=== PATIENT | male | born 1960 | race Caucasian/White ===

== ENCOUNTER → 2020-05-08 | Outpatient (CLI) | payer BC ==
--- NOTE | 2020-05-08 22:01 | CTL ---
EXAMINATION TYPE: CT Low Dose Lung DATE OF EXAM ORDERED: 05/08/2020 HISTORY: Personal tobacco use history. Lung cancer screening CT DLP: [address] CTDI: 4.44 mGy Automated exposure control for dose reduction was used. SCREENING VISIT: Initial COMPARISON: None TECHNIQUE: Low dose computed tomography scan was performed through the chest at 1 mm thick sections a nd reconstructed images in the coronal plane at [address] DIAGNOSTIC QUALITY: Limited, but interpretable FINDINGS: LUNG NODULES: None. Couple of areas of pneumonitis are within the right middle and lower lobes. LUNGS: COPD: Severity: None Fibrosis: Severity: None Lymph nodes: None Other findings: None RIGHT PLEURAL SPACE: Effusion: None Calcification: None Thickening: None Pneumothorax: None LEFT PLEURAL SPACE: Effusion: None Calcification: None Thickening: None Pneumothorax: None HEART: Heart Size: Normal Coronary calcification: None Pericardial effusion: None OTHER FINDINGS: Upper abdomen: Normal Bony thorax: Normal Supraclavicular region: Normal Other: Ascending thoracic aorta at the level the main pulmonary artery measures 3.4 cm. The main pul monary artery at the bifurcation measures 2.9 cm. IMPRESSION: Probably benign findings, groundglass opacity right middle lobe. FOLLOW UP CT CHEST RECOMMENDATION: Yes, follow-up CT chest [address] LUNG RAD: 3
== END | disposition home or self-care (01) ==
LOC: RADCTMAIN 11:50
PROVIDERS: ATTEND Family Medicine
DX: Z12.2 Encounter for screening for malignant neoplasm of respiratory organs (principal); Z87.891 Personal history of nicotine dependence; J94.8 Other specified pleural conditions
CPT/HCPCS: 71271

== ENCOUNTER 2021-08-15 09:58 | Day surgery (SDC) | payer BC ==
[~2021-08-15 09:58] MED LIST: ALPRAZolam 0.25 MG TAB PO PRN; ALPRAZolam 0.5 MG TAB PO PRN; ASPIRIN 325 MG TAB PO ONE; NITROGLYCERIN SL TABS 0.4 MG TAB SUBLINGUAL PRN
[2021-08-15] MEDS: SODIUM CHLORIDE 0.9% 1,000 ML in EMPTY BAG 1 BAG IV SCH ×2 (10:22→19:01)
[2021-08-15 10:33] LABS: Basophils # (A) 0.1 k/uL (0-0.2); Basophils % (A) 1 %; Eosinophils # (A) 0.2 k/uL (0-0.7); Eosinophils % (A) 1 %; HCT 51.3 % (39.0-53.0); HGB 17.5 gm/dL (13.0-17.5); Lymphocytes % (A) 18 %; MCH 30.3 pg (25.0-35.0); MCHC 34.2 g/dL (31.0-37.0); MCV 88.5 fL (80.0-100.0); Monocytes # (A) 0.6 k/uL (0-1.0); Monocytes % (A) 5 %; Neutrophils # (A) 8.5 k/uL (1.3-7.7); Neutrophils % (A) 74 %; Platelet Count 305 k/uL (150-450); RBC 5.79 m/uL (4.30-5.90); RDW 12.3 % (11.5-15.5); WBC 11.5 k/uL (3.8-10.6)
[2021-08-15 10:53] LABS: African American GFR (CKD) >90 (>60 ml/min/1.73 sqM); Anion Gap 13 mmol/L; Blood Urea Nitrogen 15 mg/dL (9-20); Calcium 9.5 mg/dL (8.4-10.2); Carbon Dioxide 21 mmol/L (22-30); Chloride 101 mmol/L (98-107); Glucose 257 mg/dL (74-99); Non-African American GFR(CKD) >90 (>60 ml/min/1.73 sqM); Potassium 4.2 mmol/L (3.5-5.1); Sodium 135 mmol/L (137-145)
[2021-08-15] MEDS ORDERED: ACETAMINOPHEN TAB 325 MG TAB ONE (11:36)
[2021-08-15] MEDS ORDERED: VERAPAMIL 2.5 MG/ML 2 ML AMP ONE (12:39)
[2021-08-15] MEDS ORDERED: HEPARIN SODIUM 1,000 UN/ML (10ML VL) ONE (12:40)
[2021-08-15] MEDS ORDERED: fentaNYL (PF) 50 MCG/ML 2 ML AMP ONE (12:40)
[2021-08-15] MEDS: MIDAZOLAM 2 MG/2 ML VIAL IV ONE ×2 (12:48→13:05)
[2021-08-15] MEDS ORDERED: fentaNYL (PF) 50 MCG/ML 2 ML AMP IV ONE ×2 (12:48)
[2021-08-15] MEDS ORDERED: LIDOCAINE 1% INJ 10MG/ML (5 ML VIAL-PF) SQ ONE (12:49)
[2021-08-15] MEDS ORDERED: VERAPAMIL SYRINGE (5 MG/10 ML) INTRAARTER ONE (12:51)
[2021-08-15] MEDS: HEPARIN SODIUM 1,000 UN/ML (10ML VL) IV ONE ×3 (12:55→13:23)
[2021-08-15] MEDS ORDERED: CLOPIDOGREL 75 MG TAB PO ONE (13:03)
[2021-08-15] MEDS: NITROGLYCERIN 1000MCG/10ML SYRINGE INTRACORON ONE ×2 (13:15→13:23)
[2021-08-15] MEDS ORDERED: IOPAMIDOL-370 125ML BTL INJ ONE (13:30)
[2021-08-15] MEDS ORDERED: RX INFO: IV CONTRAST WAS GIVEN 1 EACH MISC MISCELLANE PRN ×2 (13:59→17:40)
[2021-08-15] MEDS ORDERED: SODIUM CHLORIDE 0.9% 1,000 ML IV SCH (14:00)
[2021-08-15 15:00] VITALS: RESP 14; TEMP 97.7
[2021-08-15] MEDS ORDERED: MAG HYDROX/AL HYDROX/SIMETH 30 ML CUP PO PRN (17:40)
[2021-08-15] MEDS ORDERED: NITROGLYCERIN SL TABS 0.4 MG TAB SUBLINGUAL PRN (17:40)
[2021-08-15] MEDS ORDERED: ATROPINE SULFATE 0.1 MG/ML 10ML SYRINGE IV PRN (17:40)
[2021-08-15] MEDS ORDERED: ZOLPIDEM 5 MG TAB PO PRN (17:40)
--- NOTE | 2021-08-15 17:58 | P.PRCINT ---
Percutaneous Coronary Int. - Percutaneous Coronary Intervention Percutaneous Coronary Intervention: PROCEDURES PERFORMED: Left heart catheterization, bilateral coronary angiography, PCI mid OM1 with 2.5 x 23mm Xience NAOMIE post dilated with a 3.0 balloon INDICATION: Chest pain, abnormal CTA HISTORY: Patient is a pleasant 60 year old male who has been having unstable angina symptoms occuring more frequently, improved with nitro, new over the last 2 months and occurring at rest. A CTA showed obstructive disease of the OM1 and therefore LHC with possible PCI was recommended. He did not admit to much change with the Metoprolol. CONSENT:I have discussed the risks, benefits and alternative therapies for the above-mentioned procedure and for both sedation/analgesia as well as necessary blood product administration, if indicated, as they pertain to this patient. The patient has indicated understanding and acceptance of the risks and procedures discussed. PROCEDURE: After the risks, benefits and alternatives of the above mentioned procedure explained in detail with the patient, informed consent was obtained. Patient was taken to the catheterization lab and prepped and draped in usual fashion. 1% lidocaine was used to anesthetize the right radial artery. A 6- Barbadian sheath was placed in the right radial artery using modified Seldinger technique. Left coronary angiography was performed with a 5-Barbadian JL 3.5 catheter and right coronary angiography was performed with a 5-Barbadian JR5 catheter in various views. A 5-Barbadian FR5 catheter was inserted into the left ventricle and pressure measurements were obtained. The decision was made to perform PCI of the OM1. Heparin was given for ACT > 250. A 6Fr CLS 3.5 catheter was used to engage the left main. A 0.014 BMW wire was advanced into the distal OM1. Predilation was performed with a 1.5 x 12mm then a 2.5 x 12mm balloon. There were tandem 99% and 90% OM stenoses. Both lesions were covered with a 2.5 x 23mm Xience NAOMIE. The stent was post dilated with a 3.0 balloon. The wire was pulled and final angiograms were performed. Preintervention there was OMKAR 1 flow with 99% stenosis and post intervention there was OMKAR 3 flow with 0% stenosis. The right radial sheath was removed and a TR band was placed with hemostasis achieved. The patient tolerated the procedure well. Patient was transported back to the post catheterization holding area in stable condition. Conscious Sedation: Patient was monitored under the direct supervision of vision of myself for conscious sedation using Versed and fentanyl for a total duration of 39 minutes HEMODYNAMICS: Ao: 150/74 LV: 151/2, LVEDP 9 SELECTIVE CORONARY ARTERIOGRAPHY: LEFT MAIN: The left main is a large caliber vessel which bifurcates into the LAD and circumflex. There is no significant stenosis. LEFT ANTERIOR DESCENDING CORONARY ARTERY: LAD is a large caliber vessel which wraps around to the apex. There is proximal LAD 30% stenosis and otherwise mild luminal irregularities. LEFT CIRCUMFLEX CORONARY ARTERY: Left circumflex is a moderate caliber vessel with mild luminal irregularities. OM1 is moderate caliber and has a mid tandem 99% and 90% stenoses with OMKAR 1 flow. RIGHT CORONARY ARTERY: The right coronary artery is a large caliber vessel which gives off a PDA and PLV branch and is the dominant vessel. There are mild luminal irregularities. There are right to left collaterals to the OM1. FINAL IMPRESSION: 1. CAD as described above including mild 30% proximal LAD stenosis and tandem mid OM1 99% and 90% stenoses, s/p PCI mid OM1 with 2.5 x 23mm Xience NAOMIE post dilated with a 3.0 balloon 2. Normal left sided filling pressures PLAN: 1. Aggressive risk factor modification per most recent ACC/AHA guidelines. 2. Continue dual antiplatelets with aspirin and Plavix for 12 months.
[2021-08-15 18:24] VITALS: BP 158/87; PULSE 85
[2021-08-15] MEDS ORDERED: ATORVASTATIN 80 MG TAB PO SCH (21:00)
[2021-08-16] MEDS ORDERED: CLOPIDOGREL 75 MG TAB PO SCH (09:00)
[2021-08-16] MEDS ORDERED: ASPIRIN 81 MG PO SCH (09:00)
== END 2021-08-15 19:27 | disposition home or self-care (01) ==
LOC: CATHCVL 09:58 → 6NMEDSUR 13:35 → CATHCVL 19:27
PROVIDERS: ATTEND Internal Medicine
DX: I25.10 Atherosclerotic heart disease of native coronary artery without angina pectoris (principal); Z20.822 Contact with and (suspected) exposure to COVID-19
CPT/HCPCS: 93458; 80048; 85025; 87635; C9600; C1769 ×2; C1887 ×2; C1894; C1725 ×3; C1874; J2250; J2001; J3010; J1644; Q9967

== ENCOUNTER → 2023-02-23 | Outpatient (CLI) | payer OTHER ==
--- NOTE | 2023-02-23 13:43 | XR ---
EXAM TYPE: LUMBAR SPINE X RAY SERIES COMPARISON: NONE HISTORY: Pain TECHNIQUE: 4 views are submitted. FINDINGS: Alignment is anatomic. The pedicles are intact. The transverse processes are intact. There is mild anterior wedge deformity\fracture T12 of indeterminate age but likely chronic. Degenerative disc dis ease T11-T12 and T12-L1. Retrolisthesis of L1 relative to L2. Facet arthropathy L4-5 and L5-S1. Vascu lar calcifications noted. IMPRESSION: 1. Multilevel degenerative disc disease with a wedge fracture\deformity T12 indeterminate age but lik kimberlee chronic. Correlate clinically. 2. Facet arthropathy L4-5 and L5-S1 suspected foraminal encroachment consider MRI.
== END | disposition home or self-care (01) ==
LOC: RADXRMAIN 13:04
PROVIDERS: ATTEND Family Medicine
DX: M47.817 Spondylosis without myelopathy or radiculopathy, lumbosacral region (principal); M51.36 Other intervertebral disc degeneration, lumbar region
CPT/HCPCS: 72110

== ENCOUNTER 2023-06-16 15:30 | Inpatient (IN) | payer MEDICARE, OTHER ==
--- NOTE | 2023-06-16 16:03 | ED ---
Chest Pain HPI - General Chief Complaint: Chest Pain Stated Complaint: Chest pain Time Seen by Provider: 06/16/23 15:49 Source: patient Mode of arrival: ambulatory Limitations: no limitations - History of Present Illness Initial Comments: Patient is a 62-year-old man who presents for evaluation of chest pains that been going on intermittently for 1 month now. He states that initially they were brief and mild and would occur on either side of his sternum, and he usually notices them when he was trying to sleep. He states that they were brief and did not cause him much distress. He states that they have been getting more intense over the month and yesterday he had an episode that lasted maybe up to 10 minutes. He states he had just carried in groceries after shopping and he noticed pain in the substernal area down to the epigastrium and also it seemed to radiate up towards his neck. He states it was burning and moderately severe. He went to lie down and it resolved after minutes probably less than 10. MD Complaint: chest pain Onset/Timin -: month(s) Onset: during exertion Pain Location: substernal Pain Radiation: neck Quality: other (Burning) Consistency: intermittent, now resolved Improves With: rest Worsens With: exertion Anginal Symptoms: dyspnea Treatments Prior to Arrival: none - Related Data On Oral Contraceptives: No Home Medications Medication Instructions Recorded Confirmed Acetaminophen Tab [Tylenol] 2,000 mg PO TID PRN 06/16/23 06/16/23 Previous Rx's Medication Instructions Recorded Aspirin 81 mg PO DAILY 30 Days #30 tab 06/18/23 Atorvastatin [Lipitor] 40 mg PO HS 30 Days #30 tab 06/18/23 Empagliflozin [Jardiance] 25 mg PO DAILY 30 Days #30 tablet 06/18/23 Fenofibrate [Lofibra] 160 mg PO DAILY 30 Days #30 tab 06/18/23 Losartan [Cozaar] 25 mg PO DAILY 30 Days #30 tab 06/18/23 Ticagrelor [Brilinta] 90 mg PO BID 30 Days #60 tab 06/18/23 metFORMIN HCL [Glucophage] 500 mg PO BID 30 Days #60 tab 06/18/23 Allergies Allergy/AdvReac Type Severity Reaction Status Date / Time No Known Allergies Allergy Verified 06/16/23 17:16 Review of Systems ROS Statement: Those systems with pertinent positive or pertinent negative responses have been documented in the HPI. ROS Other: All systems not noted in ROS Statement are negative. Constitutional: Denies: fever ENT: Denies: congestion Respiratory: Reports: dyspnea. Denies: cough Cardiovascular: Reports: chest pain Gastrointestinal: Denies: abdominal pain, nausea, vomiting, diarrhea, constipation Genitourinary: Denies: dysuria, hematuria Musculoskeletal: Denies: back pain Skin: Denies: rash Neurological: Denies: headache, weakness EKG Findings - EKG Results: EKG: interpreted by ARNOLDD, sinus rhythm (Rate 79 bpm), normal axis, normal QRS, normal ST/T, no acute changes Past Medical History Past Medical History: Asthma, Chest Pain / Angina, GERD/Reflux, Hyperlipidemia, Hypertension Additional Past Medical History / Comment(s): intermittent chest pain-started in Jan., pain down left arm when it happens, & also left foot pain & swelling, childhood asthma, current inguinal hernia History of Any Multi-Drug Resistant Organisms: None Reported Additional Past Surgical History / Comment(s): rectal fissure repaired Past Anesthesia/Blood Transfusion Reactions: No Reported Reaction Past Psychological History: Anxiety Smoking Status: Former smoker Past Alcohol Use History: Rare Past Drug Use History: Marijuana General Exam Limitations: no limitations General appearance: alert, in no apparent distress Head exam: Present: atraumatic, normocephalic Eye exam: Present: normal appearance. Absent: scleral icterus, conjunctival injection ENT exam: Present: normal oropharynx Neck exam: Present: normal inspection Respiratory exam: Present: normal lung sounds bilaterally. Absent: respiratory distress, wheezes, rales, rhonchi, stridor, chest wall tenderness, accessory muscle use Cardiovascular Exam: Present: regular rate, normal rhythm, normal heart sounds. Absent: systolic murmur, diastolic murmur, rubs, gallop GI/Abdominal exam: Present: soft. Absent: distended, tenderness, guarding, rebound, rigid, mass Extremities exam: Present: normal inspection, normal capillary refill. Absent: pedal edema, calf tenderness Back exam: Present: normal inspection. Absent: CVA tenderness (R), CVA tenderness (L) Neurological exam: Present: alert Skin exam: Present: warm, dry, intact, normal color. Absent: rash Course Vital Signs 06/16/23 06/16/23 06/16/23 15:36 17:31 20:00 Temperature 97.8 F Pulse Rate 87 72 79 Pulse Rate [ 77 Pulse Oximetery ] Respiratory 18 18 16 Rate Blood Pressure 170/91 165/96 172/76 O2 Sat by Pulse 95 93 L 92 L Oximetry 06/16/23 21:00 Temperature Pulse Rate 78 Pulse Rate [ Pulse Oximetery ] Respiratory 26 H Rate Blood Pressure 157/80 O2 Sat by Pulse 95 Oximetry Chest Pain MDM - MDM The patient had chest x-ray that I interpreted as negative for acute infiltrate, pneumothorax, congestive heart failure. Was pt. sent in by a medical professional or institution (, PA, ELECTRICAL DESIGNER, urgent care, hospital, or shelter...) When possible be specific @ -[No] Did you speak to anyone other than the patient for history (EMS, parent, family, police, friend...)? What history was obtained from this source @ -[No] Did you review nursing and triage notes (agree or disagree)? Why? @ -[I reviewed and agree with nursing and triage notes] Were old charts reviewed (outside hosp., previous admission, EMS record, old EKG, old radiological studies, urgent care reports/EKG's, shelter records)? Report findings @ -[No old charts were reviewed] Differential Diagnosis (chest pain, altered mental status, abdominal pain women, abdominal pain men, vaginal bleeding, weakness, fever, dyspnea, syncope, headache, dizziness, GI bleed, back pain, seizure, CVA, palpatations, mental health, musculoskeletal)? @ -[Differential Chest Pain: Stable Angina, Unstable Angina, STEMI, NSTEMI Aortic Dissection, Pneumothorax, Musculoskeletal, Esophageal Spasm GERD, Cholecystitis, Pancreatitis, Zoster, th is is not meant to be an all-inclusive list. EKG interpreted by me (3pts min.). @ -[I interpreted as above] X-rays interpreted by me (1pt min.). @ -[I interpreted as above CT interpreted by me (1pt min.). @ -[None done] U/S interpreted by me (1pt. min.). @ -[None done] What testing was considered but not performed or refused? (CT, X-rays, U/S, labs)? Why? @ -[None] What meds were considered but not given or refused? Why? @ -[None] Did you discuss the management of the patient with other professionals (professionals i.e. , PA, ELECTRICAL DESIGNER, lab, RT, psych nurse, psychotherapist social worker, building superintendent, teacher, plain clothes police officer, case management director)? Give summary @ -[Case discussed with admitting physician and treatment recommendations incorporated Was smoking cessation discussed for >3mins.? @ -[yes Was critical care preformed (if so, how long)? @ -[No] Were there social determinants of health that impacted care today? How? (Homelessness, low income, unemployed, alcoholism, drug addiction, transportation, low edu. Level, literacy, decrease access to med. care, prison, rehab)? @ -[No] Was there de-escalation of care discussed even if they declined (Discuss DNR or withdrawal of care, Hospice)? DNR status @ -[No] What co-morbidities impacted this encounter? (DM, HTN, Smoking, COPD, CAD, Cancer, CVA, ARF, Chemo, Hep., AIDS, mental health diagnosis, sleep apnea, morbid obesity)? @ -[Hypertension, hyperlipidemia, smoking, CAD Was patient admitted / discharged? Hospital course, mention meds given and route, prescriptions, significant lab abnormalities, going to OR and other pertinent info. @ -[Patient is a 62-year-old man with cardiac risk factors who is having chest pain. Will admit for serial cardiac enzymes, telemetry monitoring, cardiology consultation Undiagnosed new problem with uncertain prognosis? @ -[No] Drug Therapy requiring intensive monitoring for toxicity (Heparin, Nitro, Insulin, Cardizem)? @ -[No] Were any procedures done? @ -[No] Diagnosis/symptom? @ -[Acute chest pain Acute, or Chronic, or Acute on Chronic? @ -[Acute Uncomplicated (without systemic symptoms) or Complicated (systemic symptoms)? @ -[Uncomplicated Side effects of treatment? @ -[No] Exacerbation, Progression, or Severe Exacerbation? @ -[No] Poses a threat to life or bodily function? How? (Chest pain, [place], [place], pneumonia, PE, COPD, DKA, ARF, appy, cholecystitis, CVA, Diverticulitis, Homicidal, Suic idal, threat to staff... and all critical care pts) @ -[There is possible threat to life, chest pain requires further evaluation and patient admitted Disposition Clinical Impression: Chest pain, Hyperglycemia, unspecified Disposition: ADMITTED IP TO THIS HOSP Condition: Fair Is patient prescribed a controlled substance at d/c from ED?: No
[2023-06-16] MEDS: MORPHINE SULFATE 4 MG/ML SYRINGE IV STA (16:12)
[2023-06-16] MEDS: NITROGLYCERIN SL TABS 0.4 MG TAB SUBLINGUAL STA (16:13)
[2023-06-16] MEDS: ASPIRIN 81 MG PO STA (16:13)
[2023-06-16 16:22] LABS: Basophils # (A) 0.1 k/uL (0-0.2); Basophils % (A) 1 %; Eosinophils # (A) 0.2 k/uL (0-0.7); Eosinophils % (A) 2 %; HCT 51.5 % (39.0-53.0); HGB 17.6 gm/dL (13.0-17.5); Lymphocytes # (A) 2.4 k/uL (1.0-4.8); Lymphocytes % (A) 31 %; MCH 30.8 pg (25.0-35.0); MCHC 34.1 g/dL (31.0-37.0); MCV 90.2 fL (80.0-100.0); Mean Platelet Volume 7.1; Monocytes # (A) 0.5 k/uL (0-1.0); Monocytes % (A) 6 %; Neutrophils # (A) 4.5 k/uL (1.3-7.7); Neutrophils % (A) 58 %; Platelet Count 244 k/uL (150-450); RDW 12.6 % (11.5-15.5); WBC 7.8 k/uL (3.8-10.6)
--- NOTE | 2023-06-16 16:35 | XR ---
EXAMINATION TYPE: XR chest 2V DATE OF EXAM: 06/16/2023 4:29 PM CLINICAL INDICATION:Male, 62 years old with history of Chest Pain; [facility] COMPARISON: None TECHNIQUE: XR chest 2V Frontal and lateral views of the chest. FINDINGS: Lungs/Pleura: There is no evidence of pleural effusion, focal consolidation, or pneumothorax. Pulmonary vascularity: Unremarkable. Heart/mediastinum: Cardiomediastinal silhouette is unremarkable. Musculoskeletal: No acute osseous pathology. IMPRESSION: No acute cardiopulmonary disease/process.
[2023-06-16 16:43] LABS: INR 0.9 (<1.2); Partial Thromboplastin Time 24.5 sec (22.0-30.0); Prothrombin Time 10.4 sec (10.0-12.5)
[2023-06-16 16:50] LABS: ALT 24 U/L (4-49); AST 21 U/L (17-59); African American GFR (CKD) >90 (>60 ml/min/1.73 sqM); Albumin 4.5 g/dL (3.5-5.0); Alkaline Phosphatase 142 U/L (38-126); Amylase 57 U/L (30-110); Anion Gap 10 mmol/L; Blood Urea Nitrogen 16 mg/dL (9-20); Calcium 9.6 mg/dL (8.4-10.2); Carbon Dioxide 19 mmol/L (22-30); Chloride 105 mmol/L (98-107); Glucose 257 mg/dL (74-99); Lipase 82 U/L (23-300); Magnesium 1.8 mg/dL (1.6-2.3); Non-African American GFR(CKD) >90 (>60 ml/min/1.73 sqM); Potassium 4.1 mmol/L (3.5-5.1); Sodium 134 mmol/L (137-145); Total Bilirubin 0.7 mg/dL (0.2-1.3); Total Protein 7.4 g/dL (6.3-8.2)
[2023-06-16] MEDS ORDERED: NITROGLYCERIN SL TABS 0.4 MG TAB SUBLINGUAL PRN (18:13)
[2023-06-16] MEDS: INSULIN REGULAR 100 UNIT/ML VIAL (IV) SQ STA (18:34)
[2023-06-16 21:01] LABS: Glucose,Whole Blood 357 mg/dL (70-110)
[2023-06-16] MEDS: MORPHINE SULFATE 2 MG/ML SYRINGE IVP STA (23:28)
[2023-06-17] MEDS: ACETAMINOPHEN TAB 325 MG TAB PO STA (02:15)
[2023-06-17] MEDS: MELATONIN 5 MG TABLET PO ONE (02:16)
--- NOTE | 2023-06-17 02:21 | P.HPIM ---
History of Present Illness H&P Date: 06/16/23 Patient is a 62-year-old male with a PMH of CAD status post stenting, hypertension, hyperlipidemia, and asthma who presents to the emergency room with complaints of chest discomfort. Patient reports that he has been experiencing intermittent mild chest discomfort in the left upper chest over the past 2 to 3 months. He denies experiencing shortness of breath, nausea, vomiting, diaphoresis, or dizziness. Reports the pain is a 3 out of 10 at maximal intensity, occurs intermittently throughout the day, with no clear alleviating or exacerbating features, and occurring at varying amounts each day. Also reports the pain is often in the epigastric region and radiates up into the neck. Chest x-ray in the emergency room was unremarkable with EKG showing sinus rhythm at [address]/T wave changes noted as reviewed by me. Laboratory evaluation revealed a troponin less than 0.012, sodium 134, creatinine 0.6, glucose 257. ED documentation reviewed and case discussed with ED provider. Review of systems: Pertinent positives and negatives as discussed in HPI, a complete review of systems was performed and all other systems are negative. Physical examination: Vital signs reviewed General: non toxic, no distress, appears at stated age, overweight Derm: no unusual rashes/lesions, warm Head: atraumatic, normocephalic, symmetric Eyes: EOMI, no lid lag, anicteric sclera, pupils equal round reactive to light ENT: Nose and ears atraumatic Neck: No cervical lymphadenopathy, trachea midline, supple Mouth: no lip lesion, mucus membranes moist Cardiovascular: S1S2 reg, no murmur, positive dorsalis pedis pulse bilateral, no edema Lungs: CTA bilateral, no rhonchi, no rales, no accessory muscle use Abdominal: soft, nontender to palpation, no guarding Ext: muscle strength 5 out of 5 in all 4 extremities grossly, no gross muscle atrophy, no contractures, Neuro: CN II-XI grossly intact, no gross focal neuro deficits Psych: Alert, oriented, appropriate affect Assessment: Chest pain, rule out ACS Hyperglycemia, newly diagnosed type II DM Chronic conditions: Hypertension, hyperlipidemia, asthma Imaging: Chest x-ray in the emergency room was unremarkable with EKG showing sinus rhythm at [address]/T wave changes noted as reviewed by me. Data Review: Laboratory evaluation revealed a troponin less than 0.012, sodium 134, creatinine 0.6, glucose 257. Plan: Cardiac monitoring Cardiology consulted Trend troponin Continue with aspirin and statin Insulin sliding scale blood glucose monitoring Check A1c Check lipid panel DVT prophylaxis: Lovenox subcu The patient is admitted with an anticipated less than 2 midnight stay for evaluation of chest pain CODE STATUS: Full Code Discussed with: Patient Anticipated discharge place: Home Past Medical History Past Medical History: Asthma, Chest Pain / Angina, GERD/Reflux, Hyperlipidemia, Hypertension Additional Past Medical History / Comment(s): intermittent chest pain-started in Jan., pain down left arm when it happens, & also left foot pain & swelling, childhood asthma, current inguinal hernia History of Any Multi-Drug Resistant Organisms: None Reported Past Surgical History: Heart Catheterization With Stent Additional Past Surgical History / Comment(s): rectal fissure repaired Past Anesthesia/Blood Transfusion Reactions: No Reported Reaction Date of Last Stent Placement:: 08/15/2021 Past Psychological History: Anxiety Smoking Status: Former smoker Past Alcohol Use History: Rare Additional Past Alcohol Use History / Comment(s): quit smoking May 2021, smoked on & off since teens, 1ppd Past Drug Use History: Marijuana Additional Drug Use History / Comment(s): very occasional use Medications and Allergies Home Medications Medication Instructions Recorded Confirmed Type Acetaminophen Tab [Tylenol Tab] 2,000 mg PO TID PRN 06/16/23 06/16/23 History Allergies Allergy/AdvReac Type Severity Reaction Status Date / Time No Known Allergies Allergy Verified 06/16/23 17:16 Physical Exam Vitals: Vital Signs Temp Pulse Pulse Resp BP BP Pulse Ox 06/16/23 21:47 97.7 F 77 16 167/85 94 L 06/16/23 21:00 78 26 H 157/80 95 06/16/23 20:00 79 77 16 172/76 92 L 06/16/23 17:31 72 18 165/96 93 L 06/16/23 15:36 97.8 F 87 18 170/91 95 Intake and Output 06/16/23 06/16/23 06/17/23 14:59 22:59 06:59 Intake Total 10 Balance 10 Intake: IV 10 0.9 10 Other: Voiding Method Toilet # Voids 1 Weight 90.718 kg Results CBC & Chem 7: 06/16/23 16:10 06/16/23 16:10 Labs: Abnormal Lab Results - Last 24 Hours (Table) 06/16/23 06/16/23 06/16/23 Range/Units 16:10 16:10 20:59 Hgb 17.6 H (13.0-17.5) gm/dL Sodium 134 L (137-145) mmol/L Carbon Dioxide 19 L (22-30) mmol/L Creatinine 0.60 L (0.66-1.25) mg/dL Glucose 257 H (74-99) mg/dL POC Glucose (mg/dL) 357 H (70-110) mg/dL Alkaline Phosphatase 142 H (38-126) U/L Thrombosis Risk Factor Assmnt - Choose All That Apply Any of the Below Risk Factors Present?: No Other Risk Factors: Yes Each Risk Factor Represents 2 Points: Age 61-74 years Other congenital or acquired thrombophilia - If yes, enter type in comment: No Thrombosis Risk Factor Assessment Total Risk Factor Score: 2 Thrombosis Risk Factor Assessment Level: Low Risk
[2023-06-17] MEDS: ATORVASTATIN 80 MG TAB PO STA (02:28)
[2023-06-17 06:20] LABS: Glucose,Whole Blood 259 mg/dL (70-110)
[2023-06-17] MEDS: MORPHINE SULFATE 2 MG/ML SYRINGE IVP STA ×2 (06:42→23:19)
[2023-06-17] MEDS: INSULIN ASPART (NovoLOG) 100 UNIT/ML VIAL SQ SCH (06:43)
[2023-06-17] MEDS ORDERED: AMINOPHYLLINE 500 MG/20 ML VIAL IV PRN (08:56)
[2023-06-17] MEDS ORDERED: CAFFEINE CITRATE 60 MG/3 ML VIAL IV PRN (08:56)
[2023-06-17] MEDS ORDERED: REGADENOSON 0.4 MG/5 ML SYRINGE IV PRN (08:56)
[2023-06-17] MEDS ORDERED: ASPIRIN 325 MG TAB PO SCH (09:00)
[2023-06-17] MEDS: ASPIRIN 81 MG PO SCH (09:01)
[2023-06-17] MEDS: ENOXAPARIN 40 MG/0.4 ML SYRINGE SQ SCH (09:01)
[2023-06-17] MEDS: LOSARTAN 25 MG TAB PO SCH (09:01)
--- NOTE | 2023-06-17 10:41 | P.CRDCN ---
History of Present Illness History of present illness: HISTORY OF PRESENT ILLNESS: This is a 62-year-old male with a past medical history significant for coronary artery disease with previous PCI of the OM1, hypertension, hyperlipidemia, medi cation noncompliance, and former nicotine dependence. Patient follows in the office with Dr. Wyman but has not been seen since 2021. We have been asked to see the patient in consultation for chest pain. Patient examined at the bedside. Patient states he has been having chest pain on and off for the past month. He states the pain is usually on the left side of his chest. He denies any radiati on into his arm, back, or jaw. He states the pain is usually worse with exertion. He also reports that he has not had a lot of energy recently. He gives additional history of pain in his right foot when walking. 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 He states after his stenting in 2021 he ended up losing his job and has been without insurance. He is not taking any prescription medications at this time. Patient's blood pressures have been elevated with a systolic in the 160s. DIAGNOSTICS: - EKG reveals sinus mechanism with no signs of acute ischemia. - Chest xray negative for acute process. - Laboratory data: WBC 7.8. Hemoglobin 17.6. Platelet count 244. Sodium 134. Potassium 4.1. BUN 16. Creatinine 0.6. Hemoglobin A1c 9.9. Troponin negative x 3. - Current home cardiac medications include none - Cardiac catheterization history: July 2021 with stenting of the OM1 REVIEW OF SYSTEMS: At the time of my exam: CONSTITUTIONAL: Denies fever or chills. HEENT: Denies blurred vision, vision changes, or eye pain. Denies hemoptysis CARDIOVASCULAR: Denies chest pain. Denies orthopnea. Denies PND. Denies palpitations RESPIRATORY: Denies shortness of breath. GASTROINTESTINAL: Denies abdominal pain. Denies nausea or vomiting. HEMATOLOGIC: Denies bleeding disorders. GENITOURINARY: Denies any blood in urine. SKIN: Denies pruitis. Denies rash. PHYSICAL EXAM: VITAL SIGNS: Reviewed. GENERAL: Well-developed in no acute distress. HEENT: Head is normocephalic. Pupils are equal, round. Sclerae anicteric. Mucous membranes of the mouth are moist. Neck supple. No JVD or thyromegaly LUNGS: Respirations even and unlabored. Lungs essentially clear to auscultation bilaterally. HEART: Regular rate and rhythm. S1 and S2 heard. ABDOMEN: Soft. Nondistended. Nontender. EXTREMITIES: Normal range of motion. No clubbing or cyanosis. Peripheral pulses intact. No lower extremity edema NEUROLOGIC: Awake and alert. Oriented x 3. ASSESSMENT: Chest pain, troponin negative x 3 Coronary artery disease with previous PCI of the OM1, 07/2021 Hypertension Hyperlipidemia with previous noncompliance with statin therapy Diabetes, uncontrolled, hemoglobin A1c 9.9 History of medication noncompliance Former nicotine dependence PLAN: An acute coronary but has been ruled out Continue aspirin 81 mg daily Begin atorvastatin 40 mg at night. Lipid panel pending. Begin losartan 25 mg daily Diabetic management per internal medicine Obtain 2D echo to assess cardiac structure and function Patient to undergo Lexiscan stress test Further recommendations pending patient course Nurse practitioner note has been reviewed by physician. Signing provider agrees with the documented findings, assessment, and plan of care documented by [employer] PREVENTION MANAGER as a scribe. Past Medical History Past Medical History: Asthma, Chest Pain / Angina, GERD/Reflux, Hyperlipidemia, Hypertension Additional Past Medical History / Comment(s): intermittent chest pain-started in Nov., pain down left arm when it happens, & also left foot pain & swelling, childhood asthma, current inguinal hernia History of Any Multi-Drug Resistant Organisms: None Reported Past Surgical History: Heart Catheterization With Stent Additional Past Surgical History / Comment(s): rectal fissure repaired Past Anesthesia/Blood Transfusion Reactions: No Reported Reaction Date of Last Stent Placement:: 08/15/2021 Past Psychological History: Anxiety Smoking Status: Former smoker Past Alcohol Use History: Rare Additional Past Alcohol Use History / Comment(s): quit smoking May 2021, smoked on & off since teens, 1ppd Past Drug Use History: Marijuana Additional Drug Use History / Comment(s): very occasional use Medications and Allergies Home Medications Medication Instructions Recorded Confirmed Type Acetaminophen Tab [Tylenol Tab] 2,000 mg PO TID PRN 06/16/23 06/16/23 History Allergies Allergy/AdvReac Type Severity Reaction Status Date / Time No Known Allergies Allergy Verified 06/16/23 17:16 Physical Exam Vitals: Vital Signs Temp Pulse Pulse Resp BP BP Pulse Ox 06/17/23 07:58 97 06/17/23 07:09 97.6 F 68 18 166/91 96 06/17/23 02:00 97.5 F L 67 18 167/75 97 06/16/23 21:47 97.7 F 77 16 167/85 94 L 06/16/23 21:00 78 26 H 157/80 95 06/16/23 20:00 79 77 16 172/76 92 L 06/16/23 17:31 72 18 165/96 93 L 06/16/23 15:36 97.8 F 87 18 170/91 95 Intake and Output 06/16/23 06/17/23 06/17/23 22:59 06:59 14:59 Intake Total 10 Balance 10 Intake: IV 10 0.9 10 Other: Voiding Method Toilet Toilet # Voids 1 2 Weight 90.718 kg Results 06/16/23 16:10 06/16/23 16:10 Cardiac Enzymes 06/16/23 06/16/23 06/16/23 Range/Units 16:10 16:10 19:23 AST 21 (17-59) U/L Troponin I <0.012 <0.012 (0.000-0.034) ng/mL 06/16/23 Range/Units 23:03 AST (17-59) U/L Troponin I <0.012 (0.000-0.034) ng/mL Coagulation 06/16/23 Range/Units 16:10 PT 10.4 (10.0-12.5) sec APTT 24.5 (22.0-30.0) sec CBC 06/16/23 Range/Units 16:10 WBC 7.8 (3.8-10.6) k/uL RBC 5.70 (4.30-5.90) m/uL Hgb 17.6 H (13.0-17.5) gm/dL Hct 51.5 (39.0-53.0) % Plt Count 244 (150-450) k/uL Comprehensive Metabolic Panel 06/16/23 Range/Units 16:10 Sodium 134 L (137-145) mmol/L Potassium 4.1 (3.5-5.1) mmol/L Chloride 105 (98-107) mmol/L Carbon Dioxide 19 L (22-30) mmol/L BUN 16 (9-20) mg/dL Creatinine 0.60 L (0.66-1.25) mg/dL Glucose 257 H (74-99) mg/dL Calcium 9.6 (8.4-10.2) mg/dL AST 21 (17-59) U/L ALT 24 (4-49) U/L Alkaline Phosphatase 142 H (38-126) U/L Total Protein 7.4 (6.3-8.2) g/dL Albumin 4.5 (3.5-5.0) g/dL Current Medications Generic Name Dose Route Start Last Admin Trade Name Freq PRN Reason Stop Dose Admin Aspirin 81 mg 06/17/23 09:00 Aspirin 81 Mg PO DAILY [facility] Atorvastatin Calcium 80 mg 06/17/23 21:00 Atorvastatin 80 Mg Tab PO HS [facility] Enoxaparin Sodium 40 mg 06/17/23 09:00 Enoxaparin 40 Mg/0.4 Ml Syringe SQ DAILY [facility] Insulin Aspart 0 unit 06/17/23 07:30 06/17/23 06:43 Insulin Aspart (Novolog) 100 Unit/Ml Vial SQ 6 unit ACHS [facility] Administration Protocol Nitroglycerin 0.4 mg 06/16/23 18:13 Nitroglycerin Sl Tabs 0.4 Mg Tab SUBLINGUAL Q5M PRN Chest Pain Intake and Output 06/16/23 06/17/23 06/17/23 22:59 06:59 14:59 Intake Total 10 Balance 10 Intake: IV 10 0.9 10 Other: Voiding Method Toilet Toilet # Voids 1 2 Weight 90.718 kg 06/16/23 16:10 06/16/23 16:10
[2023-06-17 12:07] LABS: Chol/HDL Ratio 14.05 Ratio; HDL Cholesterol 25.2 mg/dL (40.00-60.00); VLDL Calculation 297.6 mg/dL (5.00-40.00)
--- NOTE | 2023-06-17 12:41 | CA ---
Lexiscan Nuclear Stress Test Report Name: Mendez Chacon Exam Date: 06/17/2023 11:08 Exam Location: [place] Stress Ht (in): 72 Wt (lb): 200 BSA: 2.13 Ordering Phys: Mallory Da Silva Referring Phys: FOUZIA/DAVID Technologist: Carlos Nick Age: 62 Gender: M : 1960 Procedure CPT: Indications: Reflex order-Stress test ICD-10 Codes: Patient History: CHEST PAIN, HTN, CURRENT SMOKER, PRIOR CARDIAC CATH WITH STENTING, Medications: Meds past 24 hrs: Pretest Chest Pain: STRESS TEST Lexiscan Protocol Exercise Duration (min:sec): 01:[address] Depressions (mm): Angina Score: Blevins Score: Resting HR (bpm): 67 Peak HR (bpm): 114 Resting BP (mmHg): 158 / 98 Peak BP (mmHg): 196 / 92 MPHR: 158 Target HR: 134 % MPHR: 72 METS: 1.0 Total Dose: Peak Dose: Atropine: Double Product: 10666 BP Response: Stress Termination: INFUSION COMPLETE Stress Symptoms: HEADACHE Stress Summary: 0.4 mg of Lexiscan was infused as per the protocol. Patient's hemodynamics and ECG were monitored during the stress test. Patient did not encounter any chest pain chest pressure or shortness of breath with Lexiscan infusion. Patient explained significant headache for which she was given pepsi ECG ANALYSIS Resting ECG: Normal sinus rhythm, normal axis, HR 80 bpm Stress ECG: Peak stress in early recovery ECG shows T wave inversions in Lead III. No ectopic beats or sustained arrhythmias noticed during the stress CONCLUSIONS Abnormal ECG response to Lexiscan infusion. Hypertensive at baseline. Normal hemodynamic response to Lexiscan infusion Please refer to the nuclear imaging portion of the stress test for the complete interpretation of the study Dr Rajinder Manzo (Electronically Signed) Final Date: 17 June 2023 12:40
[2023-06-17 12:51] LABS: LDL Cholesterol,Direct Reflex 92.4 mg/dL (0.00-129.00)
--- NOTE | 2023-06-17 12:52 | CA ---
Transthoracic Echo Report Name: Mendez Chacon Age: 62 Gender: M : 1960 Exam Date: 06/17/2023 11:57 Exam Location: [place] Echo Ht (in): 70 Wt (lb): 200 Ordering Physician: Mallory Da Silva Attending/Referring Phys: [id number], Avinash Dispatch Clerk Duncan Howell RDCS Procedure CPT: Indications: LV function, CP Cardiac Hx: Technical Quality: Contrast 1: Definity Total Dose (mL): 2 Contrast 2: Total Dose (mL): MEASUREMENTS (Male / Female) Normal Values 2D ECHO LV Diastolic Diameter PLAX 4.7 cm 4.2 - 5.9 / 3.9 - 5.3 cm LV Systolic Diameter PLAX 2.7 cm IVS Diastolic Thickness 1.3 cm 0.6 - 1.0 / 0.6 - 0.9 cm LVPW Diastolic Thickness 1.3 cm 0.6 - 1.0 / 0.6 - 0.9 cm LV Relative Wall Thickness 0.6 LVOT Diameter 1.5 cm Aortic Root Diameter 2.9 cm LA Systolic Diameter LX 4.0 cm 3.0 - 4.0 / 2.7 - 3.8 cm LA Volume 68.9 cm??? 18 - 58 / 22 - 52 cm??? LA Volume Index 32.3 cm???/m??? 16 - 28 cm???/m??? DOPPLER AV Peak Velocity 146.4 cm/s AV Peak Gradient 8.6 mmHg AV Mean Velocity 119.5 cm/s AV Mean Gradient 5.9 mmHg AV Velocity Time Integral 28.7 cm LVOT Peak Velocity 142.2 cm/s LVOT Peak Gradient 8.1 mmHg LVOT Velocity Time Integral 29.8 cm LVOT Stroke Volume 52.2 cm??? LVOT Stroke Volume Index 25.0 ml/m??? LVOT Cardiac Index 2051.8 cm???/min???m??? AV Area Cont Eq vti 1.8 cm??? AV Area Cont Eq pk 1.7 cm??? Mitral E Point Velocity 76.6 cm/s Mitral A Point Velocity 106.2 cm/s Mitral E to A Ratio 0.7 MV Deceleration Time 332.6 ms TR Peak Velocity 220.2 cm/s TR Peak Gradient 19.4 mmHg PV Peak Velocity 103.4 cm/s PV Peak Gradient 4.3 mmHg FINDINGS Left Ventricle Left ventricular ejection fraction is estimated at 50-55 %. Normal left ventricular wall motion. No obvious regional wall motion abnormalities. Right Ventricle Normal right ventricular size and function. Unable to estimate the right ventricular systolic pressure. Right Atrium Normal right atrial size. Left Atrium Mildly increased left atrial volume. Mitral Valve Trace mitral regurgitation. Aortic Valve No aortic valve stenosis or regurgitation. Tricuspid Valve Trace tricuspid regurgitation. Pulmonic Valve No pulmonic regurgitation. Pericardium No pericardial effusion. Aorta Normal size aortic root. CONCLUSIONS Left ventricular ejection fraction is estimated at 50-55 %. No obvious regional wall motion abnormalities. No significant valvular dysfunction Normal RV size and function. Previewed by: Dr Rajinder Manzo (Electronically Signed) Final Date: 17 June 2023 12:51
--- NOTE | 2023-06-17 12:57 | NM ---
EXAMINATION TYPE: NM stress lexiscan cardiolite DATE OF EXAM: 06/17/2023 COMPARISON: NONE CLINICAL INDICATION: Male, 62 years old with history of CP; TECHNIQUE: After the intravenous administration of 9.9 mCi Tc 99m Sestamibi - Cardiolite resting SPE CT images acquired 45 minutes post injection. The patient received 0.4mg Lexiscan, 25.7 mCi Tc 99m Sestamibi - Stress images obtained [address] injection FINDINGS: Review of stress and rest SPECT images demonstrates large area of stress-induced reversible ischemia involving the anterior, apical and septal portions of the myocardium with reduced wall motion activit y. The ejection fraction is 64%. Note is made the stress ejection fraction is only 53%. Report kate d to the patients nurse Anju 12:52 PM 06/17/2023. IMPRESSION: Large area of stress-induced reversible ischemia as discussed above.
[2023-06-17 13:05] LABS: Glucose,Whole Blood 280 mg/dL (70-110)
[2023-06-17] MEDS ORDERED: ALPRAZolam 0.5 MG TAB PO PRN (13:44)
[2023-06-17] MEDS ORDERED: NITROGLYCERIN SL TABS 0.4 MG TAB SUBLINGUAL PRN (13:44)
[2023-06-17] MEDS: MORPHINE SULFATE 4 MG/ML SYRINGE IVP STA (14:22)
[2023-06-17 15:30] VITALS: BMI 27.1
--- NOTE | 2023-06-17 16:08 | P.PN ---
Subjective Progress Note Date: 06/17/23 Hospital course: Patient is a very pleasant 62-year-old male with a past medical history of CAD status post stenting, hypertension, hyperlipidemia, GERD, and asthma. He presented to the emergency department on 06/16/2023 with a chief complaint of chest pain. He underwent evaluation in the emergency department. Vital signs upon arrival show elevated blood pressure of 170/91, heart rate 87, respiratory rate 18, temp 97.8 F, and SpO2 of 95% on room air. EKG was completed showing normal sinus rhythm at 79 bpm. Chest x-ray negative for acute cardiopulmonary process. Labs completed and reviewed. CBC showing elevated hemoglobin of 17.6 otherwise normal findings. Coagulation profile normal findings. BMP revealing mild hyponatremia with sodium of 134 and hypocarbia with bicarb of 19. Blood glucose elevated at 257. Magnesium normal findings at 1.8. Liver profile showing elevated alkaline phosphatase of 142. Amylase and lipase normal findings. Troponin was negative at less than 0.012. Patient was admitted under our services with consultation to cardiology. Troponins trended overnight all negative at less than 0.012 x 3 draws. Patient continued to be hyperglycemic and hemoglobin A1c resulting at 9.9%. Lipid profile revealing severe hyper triglyceridemia with triglycerides of 1488, elevated cholesterol of 354 and elevated VLDL of 297.60. Patient started on atorvastatin 40 mg daily and fenofibrate 160 mg daily. Physical exam: Vital signs reviewed and stable. General: Nontoxic, no distress and appears stated age. Derm: Skin warm and dry, normal coloration for ethnicity. Head: Atraumatic, normocephalic and symmetric. Eyes: EOMs intact, no lid lag, and anicteric sclera Mouth: no lip lesions, mucus membranes moist Cardiovascular: regular rate and rhythm with normal S1S2, no murmur, positive posterior tibial pulses bilaterally, and cap refill < 2 seconds. Lungs: Respirations even, regular, and unlabored on room air. Lungs CTA bilaterally, no rhonchi, no rales, no wheezing, and no accessory muscle usage. Abdominal: soft, nontender to palpation, no guarding, no appreciable org anomegaly Ext: ROM intact. No gross muscle atrophy, no edema, no contractures Neuro: Speech clear, face symmetrical and CN II-XII grossly intact with no noted focal neuro deficits Psych: Alert and oriented to person, place, time, and situation. Appropriate and pleasant affect. Assessment and Plan of Care: Chest pain, rule out acute coronary event Severe hypertriglyceridemia Newly diagnosed type 2 diabetes mellitus with hyperglycemia. Hemoglobin A1c 9.9% Hypertension Hyperlipidemia -Cardiology consulted, planning to take patient for cardiac cath tomorrow morning. -Lexiscan stress test revealed large area of stress-induced reversible ischemia. -Echocardiogram revealing a preserved EF of 50 to 55% with no significant structural or valvular abnormalities reported. -Lipid profile revealing severe hypertriglyceridemia with triglycerides of 1488, elevated cholesterol of 354 and elevated VLDL of 297.60. (Amylase and lipase were normal findings) Patient started on atorvastatin 40 mg daily and fenofibrate 160 mg daily. -Continue telemetry monitoring -Troponins trended overnight all negative at less than 0.012 x 3 draws -Continue heart healthy and carb consistent diet, NPO at midnight for planned cardiac catheterization. -Continue medication regimen with aspirin 81 mg daily, atorvastatin 40 mg nightly, fenofibrate 160 mg daily, and losartan 25 mg daily, -Hemoglobin A1c is 9.9%. Patient will require diabetic teaching, diabetic supplies and medications on discharge. -Had long discussion with patient and at bedside regarding lifestyle and dietary modifications needed secondary to significantly elevated hemoglobin A1c and triglyceride levels and need for cardiac risk modifications. Data and imaging reviewed: Labs reviewed. Troponins trended overnight all negative at less than 0.012 x 3 draws. Hemoglobin A1c 9.9%. Lipid profile revealing severe hypertriglyceridemia with triglycerides of 1488, elevated cholesterol of 354 and elevated VLDL of 297.60. Lexiscan stress test revealed large area of stress-induced reversible ischemia. Echocardiogram revealing a preserved EF of 50 to 55% with no significant structural or valvular abnormalities reported. CODE STATUS: Full code DVT prophylaxis: Lovenox Anticipated discharge date: Clinical course to determine Anticipated discharge place: Clinical course to determine Patient was seen independently by Nurse Pracitioner. This document was prepared using [employer] dictation software. Please allow for errors in musical engineer, while rare they do occur. Rob Sullivan NP rendered care for this patient independently, reviewed the findings and plan as documented in the note above. I did not physically speak with or examine the patient on this date. Objective - Vital Signs Vital signs: Vital Signs Temp 97.6 F 06/17/23 07:09 Pulse 68 06/17/23 07:09 Resp 18 06/17/23 07:09 BP 166/91 06/17/23 07:09 Pulse Ox 97 06/17/23 07:58 FiO2 Intake & Output 06/16/23 06/17/23 06/17/23 18:59 06:59 18:59 Intake Total 10 Balance 10 Weight 90.718 kg 90.718 kg Intake: IV 10 0.9 10 Other: Voiding Method Toilet # Voids 2 - Labs CBC & Chem 7: 06/16/23 16:10 06/16/23 16:10 Labs: Abnormal Lab Results - Last 24 Hours (Table) 06/16/23 06/16/23 06/16/23 Range/Units 16:10 16:10 19:23 Hgb 17.6 H (13.0-17.5) gm/dL Sodium 134 L (137-145) mmol/L Carbon Dioxide 19 L (22-30) mmol/L Creatinine 0.60 L (0.66-1.25) mg/dL Glucose 257 H (74-99) mg/dL POC Glucose (mg/dL) (70-110) mg/dL Hemoglobin A1c 9.9 H (<=6.0) % Alkaline Phosphatase 142 H (38-126) U/L 06/16/23 06/17/23 Range/Units 20:59 06:19 Hgb (13.0-17.5) gm/dL Sodium (137-145) mmol/L Carbon Dioxide (22-30) mmol/L Creatinine (0.66-1.25) mg/dL Glucose (74-99) mg/dL POC Glucose (mg/dL) 357 H 259 H (70-110) mg/dL Hemoglobin A1c (<=6.0) % Alkaline Phosphatase (38-126) U/L
[2023-06-17 17:31] LABS: Glucose,Whole Blood 220 mg/dL (70-110)
[2023-06-17] MEDS: FENOFIBRATE 160 MG TAB PO SCH (17:59)
[2023-06-17 20:30] LABS: Glucose,Whole Blood 180 mg/dL (70-110)
[2023-06-17] MEDS ORDERED: ATORVASTATIN 80 MG TAB PO SCH (21:00)
[2023-06-17] MEDS: ATORVASTATIN 40 MG TAB PO SCH (21:15)
[2023-06-18 05:58] LABS: Glucose,Whole Blood 264 mg/dL (70-110)
[2023-06-18] MEDS: SODIUM CHLORIDE 0.9% 1,000 ML in EMPTY BAG 1 BAG IV SCH (06:05)
[2023-06-18] MEDS: ATORVASTATIN 80 MG TAB PO ONE (06:05)
[2023-06-18] MEDS: ASPIRIN 325 MG TAB PO ONE (06:05)
[2023-06-18] MEDS ORDERED: HEPARIN SODIUM,PORCINE 10,000 UNIT in SODIUM CHLORIDE 0.9% 1,000 ML IRRIGATION PRN (07:00)
[2023-06-18] MEDS ORDERED: HEPARIN SODIUM,PORCINE (1 ML) 2,500 UNIT in SODIUM CHLORIDE 0.9% 250 ML IRRIGATION PRN (07:00)
[2023-06-18] MEDS ORDERED: VERAPAMIL 2.5 MG/ML 2 ML AMP ONE (09:33)
[2023-06-18] MEDS ORDERED: LIDOCAINE 1% INJ 10MG/ML (20 ML MDV) ONE (09:33)
[2023-06-18] MEDS ORDERED: HEPARIN SODIUM 1,000 UN/ML (10ML VL) ONE ×2 (09:41→11:02)
[2023-06-18 09:42] VITALS: RESP 16
[2023-06-18] MEDS ORDERED: fentaNYL (PF) 50 MCG/ML 2 ML AMP ONE (09:53)
[2023-06-18] MEDS: SODIUM CHLORIDE 0.9% 1,000 ML IV ONE (09:55)
[2023-06-18] MEDS: LIDOCAINE 1% INJ 10MG/ML (10 ML MDV) SQ ONE ×2 (10:04→10:07)
[2023-06-18] MEDS: MIDAZOLAM 2 MG/2 ML VIAL IVP ONE (10:04)
[2023-06-18] MEDS: fentaNYL (PF) 50 MCG/ML 2 ML AMP IVP ONE (10:05)
[2023-06-18] MEDS: HEPARIN SODIUM 1,000 UN/ML (10ML VL) IV ONE ×2 (10:08→11:02)
[2023-06-18] MEDS: VERAPAMIL SYRINGE (5 MG/10 ML) INTRAARTER ONE (10:08)
[2023-06-18] MEDS ORDERED: TICAGRELOR 90 MG TAB ONE (10:13)
[2023-06-18] MEDS: TICAGRELOR 90 MG TAB PO ONE (10:14)
[2023-06-18] MEDS: IOPAMIDOL-370 100ML BTL INJ ONE ×2 (10:42→11:05)
[2023-06-18] MEDS: NITROGLYCERIN 1000MCG/10ML SYRINGE INTRACORON ONE (10:44)
[2023-06-18] MEDS ORDERED: MAG HYDROX/AL HYDROX/SIMETH 30 ML CUP PO PRN (11:12)
[2023-06-18] MEDS ORDERED: RX INFO: IV CONTRAST WAS GIVEN 1 EACH MISC MISCELLANE PRN (11:12)
[2023-06-18] MEDS ORDERED: ZOLPIDEM 5 MG TAB PO PRN (11:12)
[2023-06-18] MEDS ORDERED: ATROPINE SULFATE 0.1 MG/ML 10ML SYRINGE IV PRN (11:12)
[2023-06-18 11:17] LABS: HCT 51.1 % (39.6-50.0); HGB 18.3 g/dL (13.0-17.0); MCH 30.8 pg (27.0-32.0); MCHC 35.8 g/dL (32.0-37.0); Mean Platelet Volume 9.3 FL (9.5-12.2); NRBC Per 100 WBC 0 X 10*3/uL (0.00-0.01); Platelet Count 223 X 10*3/uL (140-440); RBC 5.94 X 10*6/uL (4.40-5.60); RDW 12.4 % (11.5-14.5); WBC 7.89 X 10*3/uL (4.50-10.00)
[2023-06-18 11:42] LABS: BUN/Creat Ratio 18.38 Ratio (12.00-20.00); Blood Urea Nitrogen 14.7 mg/dL (9.0-27.0); Glucose 252 mg/dL (70-110)
[2023-06-18 11:43] LABS: ALT 23 U/L (10-49); AST 17 U/L (14-35); Albumin 4.5 g/dL (3.8-4.9); Albumin/Globulin Ratio 1.73 Ratio (1.60-3.17); Alkaline Phosphatase 133 U/L (41-126); Calcium 9.7 mg/dL (8.7-10.3); Carbon Dioxide 20.8 mmol/L (21.6-31.8); Chloride 101 mmol/L (96-109); Globulin 2.6 g/dL (1.6-3.3); Potassium 4.1 mmol/L (3.5-5.5); Sodium 135 mmol/L (135-145); Total Bilirubin 0.8 mg/dL (0.3-1.2); Total Protein 7.1 g/dL (6.2-8.2)
[2023-06-18 11:56] LABS: Glucose,Whole Blood 267 mg/dL (70-110)
--- NOTE | 2023-06-18 13:22 | P.PN ---
Subjective Progress Note Date: 06/18/23 Hospital course: Patient is a very pleasant 62-year-old male with a past medical history of CAD status post stenting, hypertension, hyperlipidemia, GERD, and asthma. He presented to the emergency department on 06/16/2023 with a chief complaint of chest pain. He underwent evaluation in the emergency department. Vital signs upon arrival show elevated blood pressure of 170/91, heart rate 87, respiratory rate 18, temp 97.8 F, and SpO2 of 95% on room air. EKG was completed showing normal sinus rhythm at 79 bpm. Chest x-ray negative for acute cardiopulmonary process. Labs completed and reviewed. CBC showing elevated hemoglobin of 17.6 otherwise normal findings. Coagulation profile normal findings. BMP revealing mild hyponatremia with sodium of 134 and hypocarbia with bicarb of 19. Blood glucose elevated at 257. Magnesium normal findings at 1.8. Liver profile showing elevated alkaline phosphatase of 142. Amylase and lipase normal findings. Troponin was negative at less than 0.012. Patient was admitted under our services with consultation to cardiology. Troponins trended overnight all negative at less than 0.012 x 3 draws. Patient continued to be hyperglycemic and hemoglobin A1c resulting at 9.9%. Lipid profile revealing severe hyper triglyceridemia with triglycerides of 1488, elevated cholesterol of 354 and elevated VLDL of 297.60. Patient started on atorvastatin 40 mg daily and fenofibrate 160 mg daily. Echocardiogram revealing a preserved EF of 50 to 55% with no significant structural or valvular abnormalities reported. Lexiscan stress test revealed large area of stress-induced reversible ischemia. Patient underwent left heart cath with successful stenting of LAD. Had long discussion with patient regarding risk modifications including dietary and lifestyle modifications that he will need to make. Patient will need to be discharged home on multiple new medications and will need diabetic supplies. Patient does not have insurance, case management on board and will attempt to assist with indigent funds. Physical exam: Vital signs reviewed and stable. General: Nontoxic, no distress and appears stated age. Derm: Skin warm and dry, normal coloration for ethnicity. Head: Atraumatic, normocephalic and symmetric. Eyes: EOMs intact, no lid lag, and anicteric sclera Mouth: no lip lesions, mucus membranes moist Cardiovascular: regular rate and rhythm with normal S1S2, no murmur, positive posterior tibial pulses bilaterally, and cap refill < 2 seconds. Lungs: Respirations even, regular, and unlabored on room air. Lungs CTA bilaterally, no rhonchi, no rales, no wheezing, and no accessory muscle usage. Abdominal: soft, nontender to palpation, no guarding, no appreciable organomegaly Ext: ROM intact. No gross muscle atrophy, no edema, no contractures. TR band in place on right wrist. Neuro: Speech clear, face symmetrical and CN II-XII grossly intact with no noted focal neuro deficits Psych: Alert and oriented to person, place, time, and situation. Appropriate and pleasant affect. Assessment and Plan of Care: Chest pain, rule out acute coronary event Severe hypertriglyceridemia Newly diagnosed type 2 diabetes mellitus with hyperglycemia. Hemoglobin A1c 9.9% Hypertension Hyperlipidemia -Cardiology consulted, planning to take patient for cardiac cath tomorrow morn ing. -Lexiscan stress test revealed large area of stress-induced reversible ischemia. -Echocardiogram revealing a preserved EF of 50 to 55% with no significant structural or valvular abnormalities reported. -Lipid profile revealing severe hypertriglyceridemia with triglycerides of 1488, elevated cholesterol of 354 and elevated VLDL of 297.60. (Amylase and lipase were normal findings) Patient started on atorvastatin 40 mg daily and fenofibrate 160 mg daily. -Continue telemetry monitoring -Troponins trended overnight all negative at less than 0.012 x 3 draws -Continue heart healthy and carb consistent diet, NPO at midnight for planned cardiac catheterization. -Continue medication regimen with aspirin 81 mg daily, atorvastatin 40 mg nightly, fenofibrate 160 mg daily, and losartan 25 mg daily, -Hemoglobin A1c is 9.9%. Patient will require diabetic teaching, diabetic supplies and medications on discharge. -Had long discussion with patient and at bedside regarding lifestyle and dietary modifications needed secondary to significantly elevated hemoglobin A1c and triglyceride levels and need for cardiac risk modifications. Data and imaging reviewed: Patient underwent left heart cath and report reviewed stating successful stenting of LAD. Vital signs reviewed. Blood pressure 142/89, heart rate 81, respiratory rate 16, temp 97.8 F, and SpO2 of 95% on room air. Morning labs reviewed. CBC showing polycythemia with hemoglobin of 18.3. BMP showing low bicarb of 20.8 and elevated anion gap of 13.20 with morning glucose of 252. Liver profile unremarkable with exception of elevated alkaline phosphatase of 133. CODE STATUS: Full code DVT prophylaxis: Lovenox Anticipated discharge date: Tomorrow morning Anticipated discharge place: Home Patient was seen independently by Nurse Pracitioner. This document was prepared using [employer] dictation software. Please allow for errors in bottom cager, while rare they do occur. Rob Sullivan NP rendered care for this patient independently, reviewed the findings and plan as documented in the note above. I did not physically speak with or examine the patient on this date. Objective - Vital Signs Vital signs: Vital Signs Temp 97.8 F 06/18/23 07:00 Pulse 76 06/18/23 07:00 Resp 15 06/18/23 07:00 BP 161/84 06/18/23 07:00 Pulse Ox 97 06/18/23 07:00 FiO2 Intake & Output 06/17/23 06/18/23 06/18/23 18:59 06:59 18:59 Weight 90.718 kg Other: Voiding Method Toilet # Voids 1 2 - Labs CBC & Chem 7: 06/19/23 12:16 06/19/23 12:16 Labs: Abnormal Lab Results - Last 24 Hours (Table) 06/17/23 06/17/23 06/17/23 Range/Units 06:20 06:20 13:04 POC Glucose (mg/dL) 280 H (70-110) mg/dL Hemoglobin A1c 10.0 H (<=6.0) % Triglycerides 1488.00 H (0.00-149.00) mg/dL Cholesterol 354.00 H (0.00-200.00) mg/dL VLDL Cholesterol, Calc 297.60 H (5.00-40.00) mg/dL HDL Cholesterol 25.20 L (40.00-60.00) mg/dL 06/17/23 06/17/23 06/18/23 Range/Units 17:29 20:29 05:57 POC Glucose (mg/dL) 220 H 180 H 264 H (70-110) mg/dL Hemoglobin A1c (<=6.0) % Triglycerides (0.00-149.00) mg/dL Cholesterol (0.00-200.00) mg/dL VLDL Cholesterol, Calc (5.00-40.00) mg/dL HDL Cholesterol (40.00-60.00) mg/dL
--- NOTE | 2023-06-18 16:33 | P.PRCINT ---
Percutaneous Coronary Int. - Percutaneous Coronary Intervention Percutaneous Coronary Intervention: PROCEDURES PERFORMED: Left heart catheterization, bilateral coronary angiography, ultrasound guided arterial access, iFR RCA, PCI mid LAD with a 3.0 x 18mm Xience NAOMIE, post dilated with a 3.5 NC balloon, IVUS LAD INDICATION: Abnormal stress test, unstable angina CONSENT:I have discussed the risks, benefits and alternative therapies for the above-mentioned procedure and for both sedation/analgesia as well as necessary blood product administration, if indicated, as they pertain to this patient. The patient has indicated understanding and acceptance of the risks and procedures discussed. PROCEDURE: After the risks, benefits and alternatives of the above mentioned procedure explained in detail with the patient, informed consent was obtained. Patient was taken to the catheterization lab and prepped and draped in usual fashion. Ultrasound guidance was used to assess for arterial access. 1% lidocaine was used to anesthetize the right radial artery. A 6-[place] sheath was placed in the right radial artery using modified Seldinger technique and ultrasound guidance. Left coronary angiography was performed with a 5-[place] JL 3.5 catheter and right coronary angiography was performed with a 5-[place] FR5 ca theter in various views. A 5-[place] FR5 catheter was inserted into the left ventricle and pressure measurements were obtained. The decision was made to perform iFR of the RCA. A 6-[place] AL 0.75 guide was used to engage the RCA. A 0.014 pressure wire was advanced in the proximal RCA normalize. It was then advanced 1 cm distal to the distal lesion. IFR was performed and was normal at 0.97.next, the decision was made to perform PCI of LAD. Initially a 6-[place] CLS 3.5 guide was used however was selective in of the circumflex. Therefore a 6-[place] CLS 3.0 guide was used to engage the left main and with manipulation able to partially engage into the LAD. A 0.014 BMW wire was advanced to the distal LAD. Predilation was performed with a 2.5 x 12 mm balloon. Intravascular ultrasound was performed which showed reference vessel 3.5 mm proximally however diffuse disease of the entire mid to distal LAD. The most normal segment had reference vessel of 3.0 mm. PCI was performed with a 3.0 x 18 mm Xience NAOMIE of the mid LAD. The proximal and midportion of the stent were postdilated with a 3.5 mm noncompliant balloon. Repeat intravascular ultrasound still showed some underexpansion and therefore the 3.5 mm noncompliant balloon again was used with at high atmospheres. Repeat intravascular ultrasound showed excellent stent apposition. Final angiograms were performed. Preintervention there was 95% stenosis and OMKAR-3 flow and postintervention there was less than 10% stenosis with OMKAR 3 flow. The right radial sheath was removed and a TR band was placed with hemostasis achieved. The patient tolerated the procedure well. Patient was transported back to the post catheterization holding area in stable condition. Conscious Sedation: Patient was monitored under the direct supervision of myself for conscious sedation using Versed and fentanyl for a total duration of 59 minutes HEMODYNAMICS: Ao: 154/81 LA: 152/2, LVEDP 8 SELECTIVE CORONARY ARTERIOGRAPHY: LEFT MAIN: The left main is a large caliber, short vessel which bifurcates into the LAD and circumflex. There is no significant stenosis. LEFT ANTERIOR DESCENDING CORONARY ARTERY: LAD is a large caliber vessel which wraps around to the apex. There is ostial LAD 20% stenosis, diffuse proximal to mid LAD 30% stenosis with a more focal mid LAD 95% stenosis.. LEFT CIRCUMFLEX CORONARY ARTERY: Left circumflex is a moderate caliber vessel. OM1 is small caliber with a mid 50% stenosis. The circumflex has a patent stent with 20-30% circumflex stenosis. RIGHT CORONARY ARTERY: The right coronary artery is a large caliber vessel which gives off a PDA and PLV branch and is the dominant vessel. There is significant change from prior angiograms in 202 with a proximal RCA 60-70% and a mid RCA 50% stenosis. There are mild luminal irregularities of the distal RCA. FINAL IMPRESSION: 1. Multivessel CAD including 95% mid LAD, proximal RCA 60-70% stenosis with patent circumflex stent 2. S/p PCI mid LAD with a 3.0 x 18mm Xience NAOMIE, post dilated with a 3.5 NC balloon 3. iFR normal of RCA 4. Normal left sided filling pressures PLAN: 1. Aggressive risk factor modification per most recent ACC/AHA guidelines. 2. Continue dual antiplatelets with aspirin and Brillinta for 12 months 3. Treat RCA medically with normal iFR 4. Advised tobacco cessation and more aggressive regimen with fairly rapid p rogression in the last 2 years of CAD. Gave patient information and referral to [place] quit line.
[2023-06-18] MEDS: ALPRAZolam 0.25 MG TAB PO PRN (16:34)
[2023-06-18 17:46] LABS: Glucose,Whole Blood 176 mg/dL (70-110)
[2023-06-18] MEDS: TICAGRELOR 90 MG TAB PO SCH (20:57)
[2023-06-18 20:58] LABS: Glucose,Whole Blood 196 mg/dL (70-110)
[2023-06-19 06:34] LABS: Glucose,Whole Blood 236 mg/dL (70-110)
[2023-06-19 07:51] VITALS: BP 153/83; PULSE 77; TEMP 98.1
[2023-06-19] MEDS ORDERED: ACETAMINOPHEN TAB 325 MG TAB PO PRN (09:28)
[2023-06-19] MEDS: HYDROcodone/APAP 5-325MG 1 EACH TAB PO PRN (09:49)
--- NOTE | 2023-06-19 09:56 | P.DS ---
Providers Date of admission: 06/16/23 18:16 Expected date of discharge: 06/19/23 Attending physician: Booker Arredondo MD Consults: 06/16/23 18:13 Consult Physician Routine Consulting Provider: Rajinder Manzo Consult Reason/Comments: chest pain Do you want consulting provider notified?: Yes 06/18/23 11:12 Consult Physician Routine Consulting Provider: [facility] Consult Reason/Comments: Post Interventional Patient Do you want consulting provider notified?: Already Contacted Primary care physician: Stated None Hospital Course: 62-year-old male with a PMH of CAD status post stenting, hypertension, hyperlipidemia, GERD, and asthma. He presented to the emergency department on 06/16/2023 with a chief complaint of chest pain. He underwent evaluation in the emergency department. Vital signs upon arrival showed BP 170/91, HR 87, RR 18, T 97.8 F, and SpO2 of 95% on room air. EKG was completed showing NSR at 79 bpm. CXR negative for acute cardiopulmonary process. Labs completed and reviewed. CBC showing elevated hemoglobin of 17.6 otherwise normal findings. Coagulation profile normal findings. BMP revealing mild hyponatremia with sodium of 134 and hypocarbia with bicarb of 19. Blood glucose elevated at 257. Magnesium normal findings at 1.8. Liver profile showing elevated alkaline phos of 142. Amylase and lipase normal findings. Troponin was negative at less than 0.012. Patient was admitted under our services with consultation to cardiology. Troponins trended overnight all negative at less than 0.012 x 3 draws. Patient continued to be hyperglycemic and hemoglobin A1c resulting at 9.9%. Lipid profile revealing severe hypertriglyceridemia with triglycerides of 1488, elevated cholesterol of 354 and elevated VLDL of 297.60. Patient started on atorvastatin 40 mg daily and fenofibrate 160 mg daily. Echocardiogram revealing a preserved EF of 50 to 55% with no significant structural or valvular abnormalities reported. Lexiscan stress test revealed large area of stress- induced reversible ischemia. Patient underwent left heart cath with successful stenting of LAD. Had long discussion with patient regarding risk modifications including dietary and lifestyle modifications that he will need to make. Case management able to obtain medications at bedside with indegent funds. 06/18 Patient was seen and examined. Complains of foot pain. No chest pain. BMP is pending. Plans for discharge home today if renal function is OK and Cardiology cleared. General: no distress, appears at stated age Derm: warm, dry Head: atraumatic, normocephalic, symmetric Eyes: EOMI, no lid lag, anicteric sclera Mouth: no lip lesion, mucus membranes moist Cardiovascular: S1S2 reg, no murmur Lungs: Clear to auscultation bilateral, no rhonchi, no rales , no accessory muscle use Ext: no gross muscle atrophy, no edema, no contractures Neuro: No focal neurologic deficits Psych: Alert and oriented Discharge Diagnosis: Chest pain, rule out acute coronary event Severe hypertriglyceridemia Newly diagnosed type 2 diabetes mellitus with hyperglycemia. Hemoglobin A1c 9.9% Hypertension Hyperlipidemia This complex discharge took 35 minutes to complete. Patient Condition at Discharge: Stable Plan - Discharge Summary Discharge Rx Participant: Yes New Discharge Prescriptions: New Ticagrelor [Brilinta] 90 mg PO BID 30 Days #60 tab Losartan [Cozaar] 25 mg PO DAILY 30 Days #30 tab Fenofibrate [Lofibra] 160 mg PO DAILY 30 Days #30 tab Aspirin 81 mg PO DAILY 30 Days #30 tab metFORMIN HCL [Glucophage] 500 mg PO BID 30 Days #60 tab Empagliflozin [Jardiance] 25 mg PO DAILY 30 Days #30 tablet Atorvastatin [Lipitor] 40 mg PO HS 30 Days #30 tab Continue Acetaminophen Tab [Tylenol] 2,000 mg PO TID PRN PRN Reason: FOOT PAIN Discharge Medication List Acetaminophen Tab [Tylenol] 2,000 mg PO TID PRN 06/16/23 [History] Aspirin 81 mg PO DAILY 30 Days #30 tab 06/18/23 [Rx] Atorvastatin [Lipitor] 40 mg PO HS 30 Days #30 tab 06/18/23 [Rx] Empagliflozin [Jardiance] 25 mg PO DAILY 30 Days #30 tablet 06/18/23 [Rx] Fenofibrate [Lofibra] 160 mg PO DAILY 30 Days #30 tab 06/18/23 [Rx] Losartan [Cozaar] 25 mg PO DAILY 30 Days #30 tab 06/18/23 [Rx] Ticagrelor [Brilinta] 90 mg PO BID 30 Days #60 tab 06/18/23 [Rx] metFORMIN HCL [Glucophage] 500 mg PO BID 30 Days #60 tab 06/18/23 [Rx] Follow up Appointment(s)/Referral(s): Philip Wyman DO [STAFF PHYSICIAN] - 1 Week Allegra Tineo MD [Family Provider] - 1 Week Patient Instructions/Handouts: Chest Pain (ED) Activity/Diet/Wound Care/Special Instructions: Glucometer at [facility] Discharge Disposition: HOME SELF-CARE
[2023-06-19 12:52] LABS: Basophils # (A) 0.1 k/uL (0-0.2); Basophils % (A) 1 %; Eosinophils # (A) 0.2 k/uL (0-0.7); Eosinophils % (A) 2 %; HCT 54.8 % (39.0-53.0); HGB 18.7 gm/dL (13.0-17.5); Lymphocytes # (A) 2.3 k/uL (1.0-4.8); Lymphocytes % (A) 24 %; MCHC 34.2 g/dL (31.0-37.0); MCV 90.7 fL (80.0-100.0); Mean Platelet Volume 7.1; Monocytes # (A) 0.6 k/uL (0-1.0); Monocytes % (A) 7 %; Neutrophils # (A) 5.9 k/uL (1.3-7.7); Neutrophils % (A) 64 %; Platelet Count 273 k/uL (150-450); RBC 6.04 m/uL (4.30-5.90); RDW 12.4 % (11.5-15.5); WBC 9.3 k/uL (3.8-10.6)
[2023-06-19 13:14] LABS: African American GFR (CKD) >90 (>60 ml/min/1.73 sqM); Anion Gap 14 mmol/L; Blood Urea Nitrogen 15 mg/dL (9-20); Calcium 9.9 mg/dL (8.4-10.2); Carbon Dioxide 18 mmol/L (22-30); Chloride 106 mmol/L (98-107); Glucose 240 mg/dL (74-99); Non-African American GFR(CKD) >90 (>60 ml/min/1.73 sqM); Potassium 4.4 mmol/L (3.5-5.1); Sodium 138 mmol/L (137-145)
== END 2023-06-19 15:17 | disposition home or self-care (01) | DRG 322 ==
LOC: EC 15:30 → 6NMEDSUR 18:15 → OBSVTOIN 18:16 → 6NMEDSUR 20:32
PROVIDERS: ADMIT Family Medicine; ATTEND Family Medicine
PROC: 027034Z Dilation of Coronary Artery, One Artery with Drug-eluting Intraluminal Device, Percutaneous Approach (ICD-10-PCS; principal; 2023-06-18 07:30)
PROC: B240ZZ3 Ultrasonography of Single Coronary Artery, Intravascular (ICD-10-PCS; 2023-06-18 07:30)
PROC: 4A033BC Measurement of Arterial Pressure, Coronary, Percutaneous Approach (ICD-10-PCS; 2023-06-18 07:30)
PROC: 4A023N7 Measurement of Cardiac Sampling and Pressure, Left Heart, Percutaneous Approach (ICD-10-PCS; 2023-06-18 07:30)
PROC: B2111ZZ Fluoroscopy of Multiple Coronary Arteries using Low Osmolar Contrast (ICD-10-PCS; 2023-06-18 07:30)
PROC: 4A02XM4 Measurement of Cardiac Total Activity, External Approach (ICD-10-PCS; 2023-06-18 07:30)
DX: I25.110 Atherosclerotic heart disease of native coronary artery with unstable angina pectoris (principal); E87.1 Hypo-osmolality and hyponatremia; E11.65 Type 2 diabetes mellitus with hyperglycemia; I10 Essential (primary) hypertension; J45.909 Unspecified asthma, uncomplicated; I08.1 Rheumatic disorders of both mitral and tricuspid valves; I25.10 Atherosclerotic heart disease of native coronary artery without angina pectoris; K21.9 Gastro-esophageal reflux disease without esophagitis; E78.00 Pure hypercholesterolemia, unspecified; E78.1 Pure hyperglyceridemia; F41.9 Anxiety disorder, unspecified; Z79.02 Long term (current) use of antithrombotics/antiplatelets; Z79.84 Long term (current) use of oral hypoglycemic drugs; Z87.891 Personal history of nicotine dependence; Z91.148 Patient's other noncompliance with medication regimen for other reason; Z95.5 Presence of coronary angioplasty implant and graft; Z79.82 Long term (current) use of aspirin
CPT/HCPCS: 36415; 71046; 76937; 78452; 80048; 80053; 80061; 82150; 83036; 83690; 83721; 83735; 84484; 85025; 85027; 85610; 85730; 92978; 93005; 93017; 93306; 93458; 93571; 94760; 96374; 99285; 99406